=== PATIENT | female | born 1960 | race Caucasian/White ===

== ENCOUNTER 2018-03-28 09:04 | Day surgery (SDC) | payer OTHER ==
[~2018-03-28 09:04] MED LIST: 0.9% SODIUM CHLORIDE 10 ML SYRINGE IVP PRN
[2018-03-28] MEDS ORDERED: METOPROLOL TARTRATE 50 MG TABLET PO ONE (09:30)
[2018-03-28 09:55] LABS: CALCIUM, TOTAL 8.5 mg/dL (8.8-10.5); CREATININE 1.29 mg/dL (0.60-1.30); POTASSIUM 4.2 mmol/L (3.5-5.1)
[2018-03-28] MEDS ORDERED: IOVERSOL 350 MG/ML 150 ML VIAL ONE (10:29)
[2018-03-28] MEDS ORDERED: SODIUM CHLORIDE 0.9% 100 ML ONE (10:29)
[2018-03-28] MEDS ORDERED: NITROGLYCERIN 400 MCG/SUBLINGUAL SPRAY 4.9 GM BOTTLE SL ONE ×2 (10:36→10:53)
[2018-03-28] MEDS ORDERED: METOPROLOL TARTRATE 5 MG/5 ML VIAL ONE (10:36)
== END 2018-03-28 11:35 | disposition home or self-care (01) ==
LOC: SURGERY 09:04 → EDSTATUS 11:00 → SURGERY 11:35
PROVIDERS: ATTEND Internal Medicine Cardiovascular Disease
DX: I20.8 Other forms of angina pectoris (principal); I25.89 Other forms of chronic ischemic heart disease; I71.4 Abdominal aortic aneurysm, without rupture; I10 Essential (primary) hypertension; M47.814 Spondylosis without myelopathy or radiculopathy, thoracic region; I65.23 Occlusion and stenosis of bilateral carotid arteries; F31.9 Bipolar disorder, unspecified; J44.9 Chronic obstructive pulmonary disease, unspecified; F15.21 Other stimulant dependence, in remission; F17.210 Nicotine dependence, cigarettes, uncomplicated; E78.00 Pure hypercholesterolemia, unspecified; Z79.01 Long term (current) use of anticoagulants; Z79.82 Long term (current) use of aspirin; Z90.49 Acquired absence of other specified parts of digestive tract; Z79.899 Other long term (current) drug therapy; Z98.890 Other specified postprocedural states
CPT/HCPCS: 36415; 75571; 80048; 93005; J7050; Q9967; J3490

== ENCOUNTER 2018-10-27 08:31 | Day surgery (SDC) | payer OTHER ==
[~2018-10-27] VITALS: Ht 170.2 cm; Wt 76.4 kg
[~2018-10-27 08:31] MED LIST changes: +ALBU0.212 IH; +ASPI81 PO; +ATOR20TA86 PO; +BECL10.6 IH; +HYDR50CA10 PO; +LURA40 PO; +METOPROLOL TARTRATE 50 MG TABLET PO PRN; +MIRT30 PO; +NITR0.4T SL; +OMEP20 PO; +TRAZ-220 PO
[2018-10-27 09:12] LABS: CALCIUM, TOTAL 8.7 mg/dL (8.8-10.5); CREATININE 1.46 mg/dL (0.60-1.30); POTASSIUM 3.8 mmol/L (3.5-5.1)
[2018-10-27] MEDS ORDERED: SODIUM CHLORIDE 0.9% 100 ML ONE (10:46)
[2018-10-27] MEDS ORDERED: IOVERSOL 350 MG/ML 150 ML VIAL ONE (10:46)
[2018-10-27] MEDS ORDERED: NITROGLYCERIN 400 MCG/SUBLINGUAL SPRAY 4.9 GM BOTTLE SL ONE ×2 (11:25→14:37)
== END 2018-10-27 12:00 | disposition home or self-care (01) ==
LOC: SURGERY 08:31
PROVIDERS: ATTEND Internal Medicine Cardiovascular Disease
DX: I25.10 Atherosclerotic heart disease of native coronary artery without angina pectoris (principal); F17.210 Nicotine dependence, cigarettes, uncomplicated; J44.9 Chronic obstructive pulmonary disease, unspecified; Z98.890 Other specified postprocedural states; E78.00 Pure hypercholesterolemia, unspecified; F31.9 Bipolar disorder, unspecified; Z79.82 Long term (current) use of aspirin
CPT/HCPCS: 36415; 75574; 80048; 93005; J7050; Q9967